=== PATIENT | female | born 1990 | race Caucasian/White ===

== ENCOUNTER 2017-04-21 14:38 | Observation (INO) | payer MEDICAID ==
[2017-04-21] MEDS ORDERED: HYDROmorphONE/DILAUDID 1 MG/ML INJ IVP ONE (16:33)
[2017-04-21] MEDS ORDERED: NS 1,000 ML IV ONE (16:33)
[2017-04-21] MEDS ORDERED: ONDANSETRON 4 MG/2 ML VIAL IVP ONE (16:33)
--- NOTE | 2017-04-21 16:36 | EDPHY ---
H & P Stated Complaint: R SIDED ABDOMINAL PAIN, CHRON'S FLARE UP? Time Seen by Provider: 04/21/17 16:24 HPI/ROS: CHIEF COMPLAINT: Right lower quadrant pain HISTORY OF PRESENT ILLNESS: The patient is a 26-year-old female with a history of close disease who is on Humira and Imuran. She states that over the last 2 days she has developed right lower quadrant pain that has increased in intensity today. No fevers. Nausea but no vomiting. 1 episode of watery nonbloody diarrhea. She denies risk of . No urinary symptoms. She states that this is similar to her previous Crohn's flare. They did a CT scan at that time concern for appendicitis. She had been taking Remicade up until that point but it was found that she had developed antibodies to it. She was then switched to the heme air and debris and that she takes today. She did take a dose of leftover budesonide this morning because of her pain. REVIEW OF SYSTEMS: Constitutional: denies: chills, fever, recent illness, recent injury EENTM: denies: blurred vision, double vision, nose congestion Respiratory: denies: cough, shortness of breath Cardiac: denies: chest pain, irregular heart rate, lightheadedness, palpitations Gastrointestinal/Abdominal: See HPI Genitourinary: denies: dysuria, frequency, hematuria, pain Musculoskeletal: denies: joint pain, muscle pain Skin: denies: lesions, rash, jaundice, bruising Neurological: denies: headache, numbness, paresthesia, tingling, dizziness, weakness Hematologic/Lymphatic: denies: blood clots, easy bleeding, easy bruising Immunologic/allergic: denies: HIV/AIDS, transplant EXAM: GENERAL: Well-appearing, well-nourished and in no acute distress. HEAD: Atraumatic, normocephalic. EYES: Pupils equal round and reactive to light, extraocular movements intact, sclera anicteric, conjunctiva are normal. ENT: TMs normal, nares patent, oropharynx clear without exudates. Moist mucous membranes. NECK: Normal range of motion, supple without lymphadenopathy or JVD. LUNGS: Breath sounds clear to auscultation bilaterally and equal. No wheezes rales or rhonchi. HEART: Regular rate and rhythm without murmurs, rubs or gallops. ABDOMEN: Right lower quadrant tenderness, no guarding or rebound BACK: No CVA tenderness, no spinal tenderness, step-offs or deformities EXTREMITIES: Normal range of motion, no pitting or edema. No clubbing or cyanosis. NEUROLOGICAL: Cranial nerves II through XII grossly intact. Normal speech, normal gait. 5/5 strength, normal movement in all extremities, normal sensation PSYCH: Normal mood, normal affect. SKIN: Warm, dry, normal turgor, no visible rashes or lesions. Source: Patient Exam Limitations: No limitations - Personal History LMP (Females 10-55): Extended Cycle BCP/Inj Current Tetanus Diphtheria and Acellular Pertussis (TDAP): Yes Tetanus Vaccine Date: < 10 YEARS - Medical/Surgical History Hx Asthma: No Hx Chronic Respiratory Disease: No Hx Diabetes: No Hx Cardiac Disease: No Hx Renal Disease: No Hx Cirrhosis: No Hx Alcoholism: Yes Hx HIV/AIDS: No Hx Splenectomy or Spleen Trauma: No Other PMH: denies - Family History Significant Family History: No pertinent family hx - Social History Smoking Status: Never smoked Alcohol Use: Sober Drug Use: None Constitutional: Initial Vital Signs Temperature (C) 37.1 C 04/21/17 15:08 Heart Rate 87 04/21/17 15:08 Respiratory Rate 16 04/21/17 15:08 Blood Pressure 105/77 04/21/17 15:08 O2 Sat (%) 97 04/21/17 15:08 O2 Delivery Mode Room Air Allergies/Adverse Reactions: Sulfa (Sulfonamide Antibiotics) Allergy (Verified 04/21/17 15:12) Home Medications: Medication Instructions Recorded Doxycycline 04/21/17 Humira 04/21/17 Imuran 50 mg (*) 04/21/17 Microgestin 04/21/17 Medical Decision Making - Diagnostics Imaging Results: Imaging Impressions Abdomen CT 04/21/17 16:33 Impression: 1. Possible appendicitis versus Crohn's disease of the appendix. Certainly, the appearance of the appendix has changed since November 2015. 2. Free fluid in the cul-de-sac, significantly less than 2016, could be related to appendicitis or possibly a ruptured ovarian cyst. Results called to Dr. Barrie Walters at 20:00. General information for patients regarding this examination can be found at [email or web address]. If you have questions or comments about this report, please contact me at ([facility]) or [phone] ([facility]). Imaging: Discussed imaging studies w/ scallop cutter machine Radiologist ED Course/Re-evaluation: 8:10 p.m. we discussed the CT results. I have consulted Dr. Beyer who will come to evaluate the patient. The patient will likely require appendectomy to tell if this is a flare versus appendicitis. Differential Diagnosis: Partial list of the Differential diagnosis considered include but were not limited to; appendicitis, ulcerative colitis and although unlikely based on the history and physical exam, I also considered kidney stone, urinary tract infection, ovarian cyst. - Data Points Laboratory Results: Laboratory Results 04/21/17 16:30 04/21/17 16:30 04/21/17 04/21/17 04/21/17 16:30 16:30 16:30 WBC 17.74 10^3/uL H 10^3/uL (3.80-9.50) RBC 3.92 10^6/uL L 10^6/uL (4.18-5.33) Hgb 13.6 g/dL g/dL (12.6-16.3) Hct 38.8 % % (38.0-47.0) MCV 99.0 fL fL (81.5-99.8) MCH 34.7 pg H pg (27.9-34.1) MCHC 35.1 g/dL g/dL (32.4-36.7) RDW 11.8 % % (11.5-15.2) Plt Count 228 10^3/uL 10^3/uL (150-400) MPV 10.8 fL fL (8.7-11.7) Neut % (Auto) 87.8 % H % (39.3-74.2) Lymph % (Auto) 6.1 % L % (15.0-45.0) [place] % (Auto) 5.2 % % (4.5-13.0) Eos % (Auto) 0.1 % L % (0.6-7.6) Baso % (Auto) 0.3 % % (0.3-1.7) Nucleat RBC Rel Count 0.0 % % (0.0-0.2) Absolute Neuts (auto) 15.58 10^3/uL H 10^3/uL (1.70-6.50) Absolute Lymphs (auto) 1.08 10^3/uL 10^3/uL (1.00-3.00) Absolute Monos (auto) 0.93 10^3/uL H 10^3/uL (0.30-0.80) Absolute Eos (auto) 0.02 10^3/uL L 10^3/uL (0.03-0.40) Absolute Basos (auto) 0.05 10^3/uL 10^3/uL (0.02-0.10) Absolute Nucleated RBC 0.00 10^3/uL 10^3/uL (0-0.01) Immature Gran % 0.5 % % (0.0-1.1) Immature Gran # 0.08 10^3/uL 10^3/uL (0.00-0.10) Sodium 141 mEq/L mEq/L (134-144) Potassium 4.2 mEq/L mEq/L (3.5-5.2) Chloride 103 mEq/L mEq/L (97-110) Carbon Dioxide 25 mEq/l mEq/l (22-31) Anion Gap 13 mEq/L mEq/L (8-16) BUN 10 mg/dL mg/dL (7-23) Creatinine 0.9 mg/dL mg/dL (0.6-1.0) Estimated GFR > 60 Glucose 89 mg/dL mg/dL (70-100) Calcium 9.8 mg/dL mg/dL (8.5-10.4) Total Bilirubin 1.0 mg/dL mg/dL (0.1-1.4) Conjugated Bilirubin 0.4 mg/dL mg/dL (0.0-0.5) Unconjugated Bilirubin 0.6 mg/dL mg/dL (0.0-1.1) AST 32 IU/L IU/L (14-46) ALT 35 IU/L IU/L (9-52) Alkaline Phosphatase 61 IU/L IU/L (38-126) Total Protein 8.0 g/dL g/dL (6.3-8.2) Albumin 4.3 g/dL g/dL (3.5-5.0) Lipase 63 IU/L IU/L (23-300) Beta HCG, Qual NEGATIVE Medications Given: Discontinued Medications Hydromorphone HCl (Dilaudid) 0.5 mg IVP EDNOW ONE Stop: 04/21/17 16:34 Last Admin: 04/21/17 16:52 Dose: 0.5 mg Sodium Chloride (Ns) 1,000 mls @ 0 mls/hr IV EDNOW ONE; Wide Open PRN Reason: Protocol Stop: 04/21/17 16:34 Last Admin: 04/21/17 16:51 Dose: 1,000 mls Ondansetron HCl (Zofran) 4 mg IVP EDNOW ONE Stop: 04/21/17 16:34 Last Admin: 04/21/17 16:52 Dose: 4 mg Departure - Departure Disposition: [facility] Acute Clinical Impression: Acute appendicitis Qualifiers: Acute appendicitis type: with localized peritonitis Qualified Code(s): K35.3 - Acute appendicitis with localized peritonitis Condition: Fair
[2017-04-21 16:44] LABS: PLATELET COUNT 228 10^3/uL (150-400)
[2017-04-21] MEDS ORDERED: IOPAMIDOL (ISOVUE-300) 100 ML BTL ONE (18:40)
[2017-04-21] MEDS ORDERED: AMPICILLIN/SULBACTAM 3 GM in NS 100 ML IV ONE (20:47)
--- NOTE | 2017-04-21 20:53 | PDCONSULT ---
Mathematical Statistician Note: Chief complaint right lower quadrant abdominal pain Consult at the request of Dr. Briseno [facility] History of present illness: This is a 26-year-old woman who has a history of inflammatory bowel disease on Humira and Imuran for Crohn's disease diagnosed in October of 2015. She presents with acute right lower quadrant abdominal pain initially thought to be a Crohn' s flare. Patient has been otherwise quiescent in terms of her bowel disease since starting Humira. No previous issues this year No sick contacts Past medical history: Crohn's disease Past surgical history: None Family history: No GI cancers or inflammatory bowel disease Allergies: Sulfur and Remicade Medications at home: Imuran, Humira, Doxycycline, control pills Alert oriented to person place and time Mild distress due to abdominal pain Sclerae anicteric Regular rate and rhythm Clear to auscultation bilaterally Abdomen soft tender in the right lower quadrant positive Rovsing sign Extremities without edema 2+ over 2+ femoral dorsalis pedis and radial pulses No skin rashes Nonfocal neurologic exam Psychiatric parameters normal CT scan personally reviewed on PACS agree with findings of acute appendicitis. Compared to prior CT scan 2015 with obvious inflammatory bowel changes. 04/21/17 16:30 04/21/17 16:30 Total Bilirubin 1.0 mg/dL (0.1-1.4) 04/21/17 16:30 Conjugated Bilirubin 0.4 mg/dL (0.0-0.5) 04/21/17 16:30 Unconjugated Bilirubin 0.6 mg/dL (0.0-1.1) 04/21/17 16:30 AST 32 IU/L (14-46) 04/21/17 16:30 ALT 35 IU/L (9-52) 04/21/17 16:[address] 04/21/17 16:33 Impression: 1. Possible appendicitis versus Crohn's disease of the appendix. Certainly, the appearance of the appendix has changed since November 2015. 2. Free fluid in the cul-de-sac, significantly less than 2016, could be related to appendicitis or possibly a ruptured ovarian cyst. Results called to Dr. Barrie Walters at 20:00. General information for patients regarding this examination can be found at [email or web address]. If you have questions or comments about this report, please contact me at (hospital) or [phone] (cell). Impression: Acute appendicitis Quiescent Crohn's disease Plan: Laparoscopic appendectomy. The risks benefits and alternatives especially with the patient on immunosuppressants and with history of Crohn disease include fistula formation, progression to perforation and sepsis and chronic abscesses The patient verbalized understanding consent has been obtained. Plan on proceeding with surgery. Unasyn given here in the emergency room plan on several doses postoperatively discharge when tolerating food on 3-5 days of Augmentin
[2017-04-21] MEDS ORDERED: LIDOCAINE 1% 300 MG/30 ML SDV ONE (21:03)
[2017-04-21] MEDS ORDERED: BUPIVACAINE 0.5% 30 ML SDV ONE (21:03)
[2017-04-21] MEDS ORDERED: MIDAZOLAM 2 MG/2 ML VIAL IVP ONE (21:23)
--- NOTE | 2017-04-21 21:26 | PDANEPAE ---
ANE History of Present Illness 26 year old with appendicitis ANE Past Medical History - Pulmonary History Hx Oxygen in Use at Home: No - Endocrine History Hx Diabetes: No - GI History Gastrointestinal History Comment: Fransico LUNA Review of Systems Review of systems is: negative Review of Systems: ANE Patient History - Allergies Allergies/Adverse Reactions: Sulfa (Sulfonamide Antibiotics) Allergy (Verified 04/21/17 15:12) - Home Medications Home Medications: Doxycycline 04/21/17 [Last Taken Unknown] Humira 04/21/17 [Last Taken Unknown] Imuran 50 mg (*) 04/21/17 [Last Taken Unknown] Microgestin 04/21/17 [Last Taken Unknown] - NPO status NPO Since - Liquids (Date): 04/21/17 NPO Since - Liquids (Time): 09:00 NPO Since - Solids (Date): 04/21/17 NPO Since - Solids (Time): 16:00 - Anes Hx Anes Hx: no prior problems - Smoking Hx Smoking Status: Never smoked - Alcohol Use Alcohol Use: Sober ANE Labs/Vital Signs - Labs Result Diagrams: 04/21/17 16:30 04/21/17 16:30 - Vital Signs Blood Pressure: 114/72 Heart Rate: 80 Respiratory Rate: 16 O2 Sat (%): 97 Height: 172.72 cm Weight: 61.235 kg ANE Physical Exam - Airway Neck exam: FROM Mallampati Score: Class 1 Mouth exam: normal dental/mouth exam - Pulmonary Pulmonary: no respiratory distress - Cardiovascular Cardiovascular: regular rate and rhythym - ASA Status ASA Status: II, E ANE Anesthesia Plan Anesthesia Plan: general endotracheal anesthesia
[2017-04-21] MEDS ORDERED: MIDAZOLAM 2 MG/2 ML VIAL ONE (21:33)
[2017-04-21] MEDS ORDERED: PROPOFOL 200 MG/20 ML VIAL ONE (21:38)
[2017-04-21] MEDS ORDERED: fentaNYL 100 MCG/2 ML INJ ONE ×3 (21:38→23:00)
[2017-04-21] MEDS ORDERED: ONDANSETRON 4 MG/2 ML VIAL IVP PRN ×2 (22:09→22:25)
[2017-04-21] MEDS ORDERED: NALOXONE HCL 0.4 MG/ML INJ IVP PRN (22:09)
[2017-04-21] MEDS ORDERED: fentaNYL 100 MCG/2 ML INJ IVP PRN (22:09)
[2017-04-21] MEDS ORDERED: PROMETHAZINE HCL 25 MG/ML INJ IVP PRN (22:09)
[2017-04-21] MEDS ORDERED: HYDROmorphONE/DILAUDID 1 MG/ML INJ IVP PRN (22:25)
[2017-04-21] MEDS ORDERED: METOCLOPRAMIDE 10 MG/2 ML VIAL IVP PRN (22:25)
--- NOTE | 2017-04-21 22:25 | POSTOPPROG ---
Post Op Note Date of Operation: 04/21/17 Surgeon: Dong Beyer Bridge Crane Operator: none Anesthesiologist: T Warm Anesthesia: GET(General Endotracheal) Pre-op Diagnosis: Acute appendicitis Post-op Diagnosis: same Procedure: Lap Appy Findings: acutely inflammed appendix, mild ti crohn's Inf/Abcess present in the surg proc area at time of surgery?: Yes Depth: Organ Space EBL: Minimal Complications: none Specimen(s): appendix
--- NOTE | 2017-04-21 22:48 | POSTANESTH ---
Post Anesthetic Evaluation Cardiovascular Status: Normal, Stable Respiratory Status: Normal, Stable Level of Consciousness/Mental Status: Can Participate in Eval, Alert and Oriented Pain Control: Adequate, Prn Tx Ordered Nausea/Vomiting Control: Adequate, Prn Tx Ordered Complications Possibly Related to Anesthesia: None Noted
[2017-04-22] MEDS: KETOROLAC 15 MG/1 ML SDV IVP SCH ×2 (00:25→06:02)
[2017-04-22] MEDS: AMPICILLIN/SULBACTAM 1.5 GM in NS 50 ML IV SCH ×2 (02:28→08:29)
[2017-04-22 04:05] VITALS: RESP 16
--- NOTE | 2017-04-22 06:59 | GOP ---
[f rep st] OPERATIVE REPORT DATE OF OPERATION: SURGEON: Dong Beyer MD ANESTHESIA: General endotracheal anesthesia was used. ANESTHESIOLOGIST: Dr. Lemon. PREOPERATIVE DIAGNOSIS: Acute appendicitis. POSTOPERATIVE DIAGNOSIS: Acute appendicitis. PROCEDURE PERFORMED: Laparoscopic appendectomy FINDINGS: SPECIMENS: Appendix to permanent pathology. ESTIMATED BLOOD LOSS: Minimal. DESCRIPTION OF PROCEDURE: The patient was brought in the operating room. After induction of endotra cheal anesthesia in a supine position, abdomen was prepped with chlorhexidine and draped sterilely. Time-out procedure was then performed according to institutional standards. Local anesthetic was inf used in skin and subcutaneous tissues of the trocar sites and open supraumbilical trocar placement wa s done in the standard fashion. The working trocars were placed in the lower midline under direct vi sualization. The appendix was then brought in the field of dissection. A window was created between the mesoappendix and the appendix using [place] dissector and a ZEE stapler was then used to divide the appendix placed flush with the base of the cecum. The mesentery was controlled with a single fi ring of the stapler. Hemostasis was assured. There was a small amount of inflammation around the te rminal ileum, but the rest of the small bowel looks completely normal. The appendix was placed into an Endopouch and brought out through the umbilical incision. The abdomen was inspected. Hemostasis was assured. The needle, instrument, and sponge counts were verified to be correct. The abdomen was exited, deflated. The fascia was closed with 0 Vicryl at the level of the umbilicus, and all 3 port s were closed using Monocryl at the skin level. Dermabond was applied. The patient was awakened, ex tubated, and taken to the recovery room in stable condition. No immediate complications. 26-year-old woman with history of Crohn disease, presents with acute right lower quadrant abdominal p ain. CT scan compared to previous scan 1 year ago shows acute appendicitis as opposed to Crohn disea se. COMPLICATIONS: There were no complications. FLUIDS: 500 cc crystalloid given. /[id number]/MODL
[2017-04-22 08:26] VITALS: BP 97/60; PULSE 60; TEMP 98.4; O2SAT 97
[2017-04-22] MEDS: HYDROCODONE/APAP 5/325 TAB PO PRN ×2 (08:33→09:43)
--- NOTE | 2017-04-22 16:32 | ASDISCHSUM ---
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
== END 2017-04-22 09:55 | disposition home or self-care (01) ==
LOC: F3N 23:25
PROVIDERS: ADMIT Surgery; ATTEND Surgery
PROC: 0DTJ4ZZ Resection of Appendix, Percutaneous Endoscopic Approach (ICD-10-PCS; principal; 2017-04-21 21:15)
DX: K35.80 Unspecified acute appendicitis (principal)
CPT/HCPCS: 44970; 74177; 96361; 96374; 96375; 99285; G0378; J0295; J1170; J1885; J2250; J2405; J2704; J3010; Q9967